=== PATIENT | female | born 1960 | race Caucasian/White ===

== ENCOUNTER → 2018-01-04 | Day surgery (SDC) | payer OTHER ==
[~2018-01-04] VITALS: Ht 157.5 cm; Wt 61.2 kg
[~2018-01-04] MED LIST: PERCOCET 5-3251 EACH PO
--- NOTE | 2018-01-04 14:41 | Operative Report ---
Operative/Inv Procedure Report Surgery Date: 01/04/18 Name of Procedure: Laparoscopic cholecystectomy Pre-Operative Diagnosis: Biliary colic Post-Operative Diagnosis: Same Estimated Blood Loss: scant Surgeon/Flume Worker: Xu MCKINLEY,Nathan Smith/Sherrill DURHAM Anesthesia: general endotracheal tube Specimens: Gallbladder Operative Indication: 57-year-old woman with recurrent episodic right upper quadrant abdominal pain. Ultrasound shows gallstones presents for elective resection Operative/Procedure Note Note: After informed consent patient is brought to the operating room and laid supine. General anesthesia was obtained and her abdomen was prepped and draped. The skin above the umbilicus infiltrated with local anesthesia and a curvilinear incision made sharply. We came down through the subcutaneous tissues bluntly and grasped the fascia with Ladson's. A fasciotomy was created sharply and stay sutures placed. The peritoneum was entered sharply and a blunt [place] port was placed. Pneumoperitoneum was achieved. 3, 5 mm ports were placed in the epigastrium and right upper quadrant after local anesthesia was instilled and under direct vision the camera. She's placed in reverse Trendelenburg and rotated towards the left. The gallbladder is identified. It was grasped at the dome and retracted towards the head. Infundibulum was then grasped. Adhesions to the undersurface were taken down with blunt and cautery dissection. We dissected both sides the triangle Calot peritoneal tissue with cautery. The artery was medial and its normal anatomic position. It was cauterized medially to allow it to be mobilized away from the duct. [place] was cleared of areolar tissue with cautery. The infundibulum was somewhat tortuous due to chronic inflammatory changes. With cautery were able to straighten it out to reestablish normal anatomy. The arteries and duct were doubly ligated with clips. Gallbladder is removed from the fossa electrocautery. It was placed in Endo Catch bag and cinched up. Right upper quadrant was and suction irrigated normal saline. Hemostasis achieved with cautery. The ports were then removed and the gallbladder delivered and passed off the field. The fascia was closed with 0 Vicryl suture. Skin incisions closed with 4-0 Vicryl. Steri-Strips and sterile dressing applied. Sponge and needle counts are correct. Findings: Chronic cholecystitis CC: Kathy Pagan DO
== END ==
LOC: STS 03:14
DX: K80.10 Calculus of gallbladder with chronic cholecystitis without obstruction (principal); F17.200 Nicotine dependence, unspecified, uncomplicated; M19.90 Unspecified osteoarthritis, unspecified site
CPT/HCPCS: J0690; J2250